=== PATIENT | female | born 1955 | race Caucasian/White ===

== ENCOUNTER 2023-02-19 12:18 | Emergency (ER) | payer OTHER ==
[2023-02-19 12:25] VITALS: BP 105/60; PULSE 74; RESP 19; TEMP 98.8; BMI 20.7
[2023-02-19 13:47] LABS: BASO % 0.6 % (0-2.0); HEMATOCRIT 38.5 % (32.4-45.2); HEMOGLOBIN 12.6 GM/dL (10.7-15.3); LYMPH % 41.8 % (8-40); MCH 29.3 pg (25.7-33.7); MCHC 32.6 g/dl (32.0-36.0); MEAN CELL VOLUME 89.7 fl (80-96); MEAN PLT VOLUME 8.4 fl (7.5-11.1); MONO % 8.9 % (3.8-10.2); NEUT % 41.7 % (42.8-82.8); PLATELET COUNT 330 10^3/uL (134-434); RBC 4.29 M/mm3 (3.60-5.2); RDW 14.3 % (11.6-15.6); WHITE BLOOD COUNT 5.5 K/mm3 (4.0-10.0)
[2023-02-19 13:49] LABS: POTASSIUM 3.8 mmol/L (3.5-5.1)
[2023-02-19 13:51] LABS: CALCIUM 9.8 mg/dL (8.5-10.1)
[2023-02-19 13:52] LABS: ALBUMIN 4.1 g/dl (3.4-5.0); BLOOD UREA NITROGEN 16.9 mg/dL (7-18)
[2023-02-19 13:55] LABS: CREATININE 1.1 mg/dL (0.55-1.3)
[2023-02-19 13:57] LABS: BILIRUBIN,TOTAL 0.4 mg/dL (0.2-1); TOT PROT 7.6 g/dl (6.4-8.2)
[2023-02-19] MEDS ORDERED: ALBUTEROL SO4 2.5/IPRATROPIUM 0.5 INH SOL 3 ML VIAL.NEB. NEB ONE ×2 (14:34→14:39)
== END 2023-02-19 15:36 | disposition home or self-care (01) ==
LOC: JERFT 12:18
PROC: 3E0F7GC Introduction of Other Therapeutic Substance into Respiratory Tract, Via Natural or Artificial Opening (ICD-10-PCS; principal; 2023-02-19)
DX: R05.9 Cough, unspecified (principal); R06.02 Shortness of breath; R50.9 Fever, unspecified; M54.6 Pain in thoracic spine; Z20.822 Contact with and (suspected) exposure to COVID-19
CPT/HCPCS: 0241U-QW; 36415; 71046-TC-FY; 80053; 84484; 85025; 93005; 93010; 94640; 99285-25

== ENCOUNTER 2023-06-07 20:35 | Emergency (ER) | payer OTHER ==
[2023-06-07 21:05] VITALS: RESP 18; BMI 20.7
[2023-06-08 00:18] LABS: THROAT:GRP A STREP NOT DETECTED (NOTDETECTED)
[2023-06-08] MEDS ORDERED: SODIUM CHLORIDE 0.9% 1000 ML INFUS.BAG IV ONE (01:13)
[2023-06-08] MEDS ORDERED: KETOROLAC TROMETHAMINE 15 MG/ML VIAL IVPUSH ONE (01:13)
[2023-06-08] MEDS ORDERED: KETOROLAC TROMETHAMINE 15 MG/ML VIAL ONE (01:21)
[2023-06-08 01:25] LABS: EPI CELLS 4 /uL (0-25.1); HYALINE CASTS 0 /uL (0-3.1); URINE APPEARANCE CLEAR; URINE BACTERIA 49 /uL (0-1359); URINE BILIRUBIN NEGATIVE (NEGATIVE); URINE COLOR YELLOW; URINE GLUCOSE (UA) 1+ (NEGATIVE); URINE KETONE NEGATIVE (NEGATIVE); URINE LEUK ESTERASE NEGATIVE (NEGATIVE); URINE NITRITE NEGATIVE (NEGATIVE); URINE PROTEIN NEGATIVE (NEGATIVE); URINE RBC 24 /uL (0-23.9); URINE UROBILINOGEN 0.2 mg/dL (0.2-1.0); URINE WBC 6 /uL (0-25.8)
[2023-06-08 01:32] LABS: BASO % 0.3 % (0-2.0); EOS % 0.1 % (0-4.5); HEMATOCRIT 37.7 % (32.4-45.2); HEMOGLOBIN 12.3 GM/dL (10.7-15.3); LYMPH % 14.9 % (8-40); MCH 29.3 pg (25.7-33.7); MCHC 32.5 g/dl (32.0-36.0); MEAN CELL VOLUME 90.2 fl (80-96); MEAN PLT VOLUME 8.2 fl (7.5-11.1); MONO % 7.5 % (3.8-10.2); NEUT % 77.2 % (42.8-82.8); PLATELET COUNT 300 10^3/uL (134-434); RBC 4.18 M/mm3 (3.60-5.2); RDW 13.6 % (11.6-15.6); WHITE BLOOD COUNT 11.9 K/mm3 (4.0-10.0)
[2023-06-08 01:53] VITALS: BP 156/58; PULSE 76
[2023-06-08 01:56] LABS: POTASSIUM 3.8 mmol/L (3.5-5.1)
[2023-06-08 01:58] LABS: BLOOD UREA NITROGEN 16.4 mg/dL (7-18); CALCIUM 9.8 mg/dL (8.5-10.1)
[2023-06-08 01:59] LABS: ALBUMIN 3.8 g/dl (3.4-5.0)
[2023-06-08 02:03] LABS: BILIRUBIN,TOTAL 0.4 mg/dL (0.2-1); TOT PROT 7.2 g/dl (6.4-8.2)
[2023-06-08] MEDS ORDERED: ACETAMINOPHEN INJECTION 100 ML IVPB ONE (02:19)
[2023-06-08] MEDS ORDERED: ACETAMINOPHEN 1000 MG/100 ML BAG IVPB ONE (02:20)
[2023-06-08 03:41] VITALS: TEMP 98.5
== END 2023-06-08 03:48 | disposition home or self-care (01) ==
LOC: JERFT 20:35 → JER 20:35
PROC: 3E033NZ Introduction of Analgesics, Hypnotics, Sedatives into Peripheral Vein, Percutaneous Approach (ICD-10-PCS; principal; 2023-06-08)
PROC: 3E0333Z Introduction of Anti-inflammatory into Peripheral Vein, Percutaneous Approach (ICD-10-PCS; 2023-06-08)
DX: R50.9 Fever, unspecified (principal); M79.10 Myalgia, unspecified site; J02.9 Acute pharyngitis, unspecified; R51.9 Headache, unspecified; R11.2 Nausea with vomiting, unspecified; R09.81 Nasal congestion; Z20.822 Contact with and (suspected) exposure to COVID-19
CPT/HCPCS: 0241U-QW; 36415; 71046-TC-FY; 80053; 81003; 85025; 87070; 87086; 87651; 99284-25

== ENCOUNTER 2023-11-23 23:16 | Emergency (ER) | payer OTHER ==
[2023-11-23 23:21] VITALS: BP 123/56; PULSE 90; RESP 18; TEMP 101.3; BMI 21.1
[2023-11-24] MEDS ORDERED: ACETAMINOPHEN INJECTION 100 ML IVPB ONE (00:26)
[2023-11-24] MEDS: SODIUM CHLORIDE 1,000 ML IV ONE (00:43)
[2023-11-24] MEDS: ACETAMINOPHEN 1000 MG/100 ML BAG IVPB ONE (00:43)
[2023-11-24 00:52] LABS: BASO % 0.2 % (0-2.0); HEMATOCRIT 35.5 % (32.4-45.2); LYMPH % 9.3 % (8-40); MCH 29.6 pg (25.7-33.7); MCHC 33.7 g/dl (32.0-36.0); MEAN CELL VOLUME 88.1 fl (80-96); MEAN PLT VOLUME 8.1 fl (7.5-11.1); MONO % 6.1 % (3.8-10.2); NEUT % 84.4 % (42.8-82.8); PLATELET COUNT 264 10^3/uL (134-434); RBC 4.03 M/mm3 (3.60-5.2); RDW 14.6 % (11.6-15.6); WHITE BLOOD COUNT 9.6 K/mm3 (4.0-10.0)
[2023-11-24 01:10] LABS: POTASSIUM 3.9 mmol/L (3.5-5.1)
[2023-11-24 01:12] LABS: CALCIUM 9.5 mg/dL (8.5-10.1)
[2023-11-24 01:13] LABS: ALBUMIN 3.8 g/dl (3.4-5.0); BLOOD UREA NITROGEN 18.1 mg/dL (7-18)
[2023-11-24 01:14] LABS: THROAT:GRP A STREP DETECTED (NOTDETECTED)
[2023-11-24 01:16] LABS: CREATININE 1.1 mg/dL (0.55-1.3)
[2023-11-24 01:17] LABS: TOT PROT 7.1 g/dl (6.4-8.2)
[2023-11-24 01:18] LABS: BILIRUBIN,TOTAL 0.6 mg/dL (0.2-1)
[2023-11-24] MEDS ORDERED: AZITHROMYCIN 250 MG TABLET ONE (01:40)
[2023-11-24] MEDS: AZITHROMYCIN 250 MG TABLET PO ONE (01:49)
== END 2023-11-24 01:48 | disposition home or self-care (01) ==
LOC: JER 23:16
PROC: 3E033NZ Introduction of Analgesics, Hypnotics, Sedatives into Peripheral Vein, Percutaneous Approach (ICD-10-PCS; principal; 2023-11-24)
PROC: 3E0337Z Introduction of Electrolytic and Water Balance Substance into Peripheral Vein, Percutaneous Approach (ICD-10-PCS; 2023-11-24)
DX: R50.9 Fever, unspecified (principal); J02.9 Acute pharyngitis, unspecified; M79.10 Myalgia, unspecified site; R53.81 Other malaise; Z20.822 Contact with and (suspected) exposure to COVID-19
CPT/HCPCS: 0241U-QW; 36415; 80053; 85025; 87651; 99284-25; J0131

== ENCOUNTER 2024-06-30 21:22 | Emergency (ER) | payer OTHER ==
[2024-06-30 21:32] VITALS: BMI 21.2
[2024-06-30] MEDS ORDERED: ACETAMINOPHEN INJECTION 100 ML ONE (22:23)
[2024-06-30] MEDS: ACETAMINOPHEN 1000 MG/100 ML BAG IVPB ONE (22:52)
[2024-06-30] MEDS: SODIUM CHLORIDE 0.9% 500 ML INFUS.BAG IV ONE (22:52)
[2024-06-30 23:34] LABS: BASO % 0.1 % (0-2.0); HEMATOCRIT 34.8 % (32.4-45.2); HEMOGLOBIN 11.8 GM/dL (10.7-15.3); LYMPH % 6.4 % (8-40); MEAN CELL VOLUME 88.2 fl (80-96); MEAN PLT VOLUME 8.2 fl (7.5-11.1); MONO % 5.3 % (3.8-10.2); NEUT % 88.2 % (42.8-82.8); PLATELET COUNT 232 10^3/uL (134-434); RBC 3.94 M/mm3 (3.60-5.2); RDW 13.6 % (11.6-15.6); WHITE BLOOD COUNT 8.3 K/mm3 (4.0-10.0)
[2024-06-30 23:42] LABS: INR 1.13 (0.83-1.09)
[2024-06-30 23:52] LABS: POTASSIUM 3.2 mmol/L (3.5-5.1)
[2024-06-30 23:55] LABS: ALBUMIN 3.4 g/dl (3.4-5.0); BLOOD UREA NITROGEN 22.9 mg/dL (7-18)
[2024-06-30 23:58] LABS: CREATININE 1.2 mg/dL (0.55-1.3)
[2024-07-01] LABS: BILIRUBIN,TOTAL 0.4 mg/dL (0.2-1); TOT PROT 6.2 g/dl (6.4-8.2)
[2024-07-01] MEDS ORDERED: ONDANSETRON 4 MG/2 ML VIAL ONE (00:38)
[2024-07-01] MEDS: ONDANSETRON 4 MG/2 ML VIAL IVPB ONE (01:29)
[2024-07-01 01:36] LABS: EPI CELLS 5 /uL (0-25.1); HYALINE CASTS 0 /uL (0-3.1); PH,URINE 7.5 (5.0-8.0); URINE APPEARANCE CLEAR; URINE BACTERIA 26 /uL (0-1359); URINE BILIRUBIN NEGATIVE (NEGATIVE); URINE COLOR YELLOW; URINE GLUCOSE (UA) NEGATIVE (NEGATIVE); URINE KETONE NEGATIVE (NEGATIVE); URINE LEUK ESTERASE NEGATIVE (NEGATIVE); URINE NITRITE NEGATIVE (NEGATIVE); URINE PROTEIN NEGATIVE (NEGATIVE); URINE RBC 49 /uL (0-23.9); URINE UROBILINOGEN 0.2 mg/dL (0.2-1.0); URINE WBC 3 /uL (0-25.8)
[2024-07-01] MEDS ORDERED: POTASSIUM CHLORIDE ORAL LIQUID 20 MEQ/15 ML ONE (01:48)
[2024-07-01] MEDS ORDERED: MAGNESIUM SULFATE IN WATER 2 GM/50 ML IVPB IVPB ONE (01:48)
[2024-07-01] MEDS: MAGNESIUM SULF 50% (8.12 MEQ/2 ML-1 GM VIAL) IVPB ONE (01:56)
[2024-07-01] MEDS: POTASSIUM CHLORIDE TABS 20 MEQ TABLET.ER (FP) PO ONE (01:56)
[2024-07-01] MEDS ORDERED: ACETAMINOPHEN 325 MG TABLET (FP) ONE (06:04)
[2024-07-01 06:10] VITALS: BP 135/46; PULSE 76; RESP 16; TEMP 100.6
[2024-07-01] MEDS: ACETAMINOPHEN 325 MG TABLET (FP) PO ONE (06:11)
== END 2024-07-01 06:19 | disposition home or self-care (01) ==
LOC: JER 21:22
PROC: 3E033NZ Introduction of Analgesics, Hypnotics, Sedatives into Peripheral Vein, Percutaneous Approach (ICD-10-PCS; principal; 2024-06-30)
PROC: 3E033GC Introduction of Other Therapeutic Substance into Peripheral Vein, Percutaneous Approach (ICD-10-PCS; 2024-06-30)
PROC: 3E033GC Introduction of Other Therapeutic Substance into Peripheral Vein, Percutaneous Approach (ICD-10-PCS; 2024-06-30)
DX: E87.6 Hypokalemia (principal); R53.1 Weakness; R10.9 Unspecified abdominal pain; R42 Dizziness and giddiness; R11.2 Nausea with vomiting, unspecified; Z20.822 Contact with and (suspected) exposure to COVID-19
CPT/HCPCS: 0241U-QW; 36415; 71045-TC-FY; 74175-TC; 74176-TC; 80053; 81003; 83605; 84484; 85025; 85610; 85730; 86850; 86900; 86901; 87086; 93005; 93010; 96374; 96375; 99285-25; J0131; Q9967